=== PATIENT | female | born 1960 | race Two or more races ===

== ENCOUNTER 2020-12-13 06:44 | Day surgery (SDC) | payer OTHER | END 2020-12-13 17:00 | disposition home or self-care (01) | LOC: CIR.AMB 06:44 | PROVIDERS: ATTEND Orthopaedic Surgery Hand Surgery | DX: S52.531A Colles' fracture of right radius, initial encounter for closed fracture (principal); Z20.822 Contact with and (suspected) exposure to COVID-19 | CPT/HCPCS: 25609; 25118; 25280; C1776 ==

== ENCOUNTER 2022-01-16 06:00 | Day surgery (SDC) | payer OTHER ==
[~2022-01-16 06:00] MED LIST: TOPROL XL25 M1 PO
== END 2022-01-16 14:50 | disposition home or self-care (01) ==
LOC: CIR.AMB 06:00
PROVIDERS: ATTEND Orthopaedic Surgery Hand Surgery
DX: S52.531S Colles' fracture of right radius, sequela (principal); Z20.822 Contact with and (suspected) exposure to COVID-19; Z91.013 Allergy to seafood; I10 Essential (primary) hypertension; J45.909 Unspecified asthma, uncomplicated; F41.9 Anxiety disorder, unspecified; K21.9 Gastro-esophageal reflux disease without esophagitis